=== PATIENT | female | born 1930 | race Caucasian/White ===

== ENCOUNTER 2018-02-24 17:33 | Inpatient (IN) | payer MEDICARE, MEDICAID ==
[2018-02-24] VITALS: BP 160/70
[~2018-02-24] VITALS: Ht 167.6 cm; Wt 70.3 kg
--- NOTE | 2018-02-24 17:59 | NUR ---
PT BIB PA WITH A C/O GENERALIZED WEAKNESS. PT IS [place] OF [place] IN BILATERAL EARS. PT HAS HEARING DEVICE. PT WENT TO BED #15 AND PLACED ON CONTINUOUS PULSE OX AND MONITOR.
[2018-02-24 18:05] LABS: BASOPHILS # (AUTO) 0.1 /CMM (0.0-0.2); EOSINOPHILS % (AUTO) 4.1 % (0.0-6.0); HEMATOCRIT 36 % (33-45); HEMOGLOBIN 12.1 g/dL (11.5-14.8); LYMPHOCYTES % (AUTO) 33.1 % (20.0-44.0); MEAN CORPUSCULAR HEMOGLOBIN 30 PG (26.0-33.0); MEAN CORPUSCULAR HGB CONC 34 g/dl (31.0-36.0); MEAN CORPUSCULAR VOLUME 90 fL (82-100); MONOCYTES # (AUTO) 0.5 /CMM (0.1-1.30); MONOCYTES % (AUTO) 9.3 % (2.0-12.0); NEUTROPHILS # (AUTO) 3.1 /CMM (1.8-8.9); NEUTROPHILS % (AUTO) 52.5 % (43.0-81.0); PLATELET COUNT (AUTO) 187 /CMM (150-450); WHITE BLOOD COUNT (AUTO) 5.9 K/uL (4.3-11.0)
--- NOTE | 2018-02-24 18:10 | NUR ---
CXR IN PROGRESS AT THE BEDSIDE.
[2018-02-24] MEDS ORDERED: OLAN2.5T3 PO ×2 (18:12)
[2018-02-24] MEDS ORDERED: ISOS30TA6 PO (18:12)
[2018-02-24] MEDS ORDERED: BLOO-668 IN (18:12)
[2018-02-24] MEDS ORDERED: ACET-2605 PO (18:12)
[2018-02-24] MEDS ORDERED: SENN-18 PO (18:12)
[2018-02-24] MEDS ORDERED: DABI150C PO (18:12)
[2018-02-24] MEDS ORDERED: BISA10SU8 RC (18:12)
[2018-02-24] MEDS ORDERED: DIPH30CR2 TP (18:12)
[2018-02-24] MEDS ORDERED: MAGN400O6 PO (18:12)
[2018-02-24] MEDS ORDERED: BENZ0.5T43 PO (18:12)
[2018-02-24] MEDS ORDERED: INSU100V3 SQ (18:12)
[2018-02-24] MEDS ORDERED: GLIP5TAB13 PO (18:12)
[2018-02-24] MEDS ORDERED: NA P133E RC (18:12)
[2018-02-24] MEDS ORDERED: ATOR40TA PO (18:12)
[2018-02-24] MEDS ORDERED: MAG30ORA PO (18:12)
[2018-02-24] MEDS ORDERED: ACET-868 PO (18:12)
[2018-02-24] MEDS ORDERED: GABA-532 PO (18:12)
[2018-02-24] MEDS ORDERED: PANT40TA2 PO (18:12)
[2018-02-24] MEDS ORDERED: DOCU-141 PO (18:12)
[2018-02-24 18:15] LABS: CARBON DIOXIDE 27 mmol/L (21-32); CHLORIDE 107 mmol/L (98-107); CREATININE 0.8 mg/dL (0.6-1.3); GLUCOSE 65 mg/dL (74-106); POTASSIUM 3.8 mmol/L (3.5-5.1); SODIUM SERUM 141 mmol/L (136-145); UREA NITROGEN, BLOOD 10 mg/dL (7-18)
[2018-02-24 18:18] LABS: INR 1.13 (0.85-1.15)
[2018-02-24 18:20] LABS: ALANINE AMINOTRANSFERASE 14 U/L (12-78); ALKALINE PHOSPHATASE 65 U/L (46-116); ASPARTATE AMINOTRANSFERASE 12 U/L (15-37); BILIRUBIN,DIRECT 0.1 mg/dL (0.0-0.2); BILIRUBIN,TOTAL 0.3 mg/dL (0.2-1.0); TOTAL PROTEIN, SERUM 6.7 g/dL (6.4-8.2)
[2018-02-24 18:22] LABS: TROPONIN I < 0.017 ng/mL (0.00-0.056)
[2018-02-24] MEDS ORDERED: VANCOMYCIN 1 GM in IV D5W 250 ML IV ONE (19:00)
[2018-02-24] MEDS ORDERED: CEFEPIME 1 GM in IV D5W 50 ML IV ONE (19:00)
--- NOTE | 2018-02-24 19:07 | NUR ---
PT IS AMBULATING WITH ASSISTANCE TO THE BATHROOM.
--- NOTE | 2018-02-24 19:10 | NUR ---
PT TAKEN TO THE BATHROOM VIA WC.
--- NOTE | 2018-02-24 19:16 | NUR ---
NO URINE SAMPLE OBTAINED. PT RETURNED TO ER 15 VIA WC
--- NOTE | 2018-02-24 19:26 | NUR ---
CALLED [facility] COLLABORATING SUPERVISING PHYSICIAN WAS PAGED.
--- NOTE | 2018-02-24 19:44 | NUR ---
REPORT GIVEN TO ED, ZINC CHLORIDE OPERATOR FOR SAM.
--- NOTE | 2018-02-24 20:00 | NUR ---
i&o CATH DONE BY FEMALE JACKELINE WRAY, URINE SAMPLE COLLECTED AND SENT TO LAB. NOTED CLEAR YELLOW URINE APPROXIMATELY 150ML
[2018-02-24 20:32] LABS: APPEARANCE,URINE CLEAR (CLEAR); BILIRUBIN,URINE NEGATIVE (NEGATIVE); BLOOD, URINE TRACE Ery/uL (NEGATIVE); COLOR,URINE YELLOW (YELLOW); KETONES,URINE NEGATIVE (NEGATIVE); LEUKOCYTE ESTERASE ,URINE 1+ (NEGATIVE); NITRITE, URINE NEGATIVE (NEGATIVE); PROTEIN,URINE NEGATIVE (NEGATIVE); UGLUCOSE NEGATIVE (NEGATIVE); UROBILINOGEN,URINE 0.2 EU/dL (0.2)
--- NOTE | 2018-02-24 20:45 | NUR ---
REPORT CALLED TO STAND UP COMEDIANGONSALO MALIK
[2018-02-24 20:51] LABS: RBC,URINE 0-2 /HPF (0-2)
[2018-02-24 20:52] LABS: BACTERIA,URINE Few /HPF (None Seen); SQUAMOUS EPITHELIAL CELL,UR Few /HPF (None Seen)
[2018-02-24] MEDS ORDERED: BISACODYL SUPP (10 MG) 10 MG/SUPP.RECT SUPP.RECT RC PRN (21:00)
[2018-02-24] MEDS ORDERED: MAG HYDROX/AL HYDROX/SIMETH 30 ML UDC PO PRN (21:00)
[2018-02-24] MEDS ORDERED: Z GUARD REMEDY 2 OZ OINT TP PRN (21:00)
[2018-02-24] MEDS ORDERED: HYDROCODONE/APAP 5/325MG 1 EACH TABLET PO PRN (21:00)
[2018-02-24] MEDS ORDERED: ENOXAPARIN SODIUM 40 MG/0.4 ML DISP.SYRIN SQ SCH (21:00)
[2018-02-24] MEDS ORDERED: ZOLPIDEM TARTRATE 5 MG TABLET PO PRN (21:00)
[2018-02-24] MEDS ORDERED: ACETAMINOPHEN 325 MG TABLET PO PRN (21:00)
[2018-02-24] MEDS ORDERED: MAGNESIUM HYDROXIDE 30 ML UDC PO PRN (21:00)
[2018-02-24] MEDS ORDERED: ONDANSETRON HCL/PF 4 MG/2 ML VIAL IVP PRN (21:00)
[2018-02-24 21:10] VITALS: BP 160/70
--- NOTE | 2018-02-24 21:15 | NUR ---
KATIUSKA RN NOTES RECEIVED REPORT FROM ER NURSE ED. RECEIVED PT. ON GURNEY, A/O X2 WITH EPISODES OF CONFUSION.PT IS PLACED ON YARDAGE CALLER WITH HR OF SB 50'S, ON RA WITH SPO2 OF 96%.SKIN IS INTACT WITH SOME SKIN RASH. RIGHT [id number] IV IS INTACT, PATIENT WITH 0.9%NS @75ML/HR. DENTURES(UPPER AND LOWER) AND HEARING AID ARE BEDSIDE. ALL SAFETY MEASURES ARE IMPLEMENTED, BED IN LOW, LOCKED POSITION, CALL LIGHT WITHIN REACH. WILL CONT. TO MONITOR.
[2018-02-24] MEDS ORDERED: CEFEPIME 1 GM in IV NS 0.9% 50 ML IV SCH (21:30)
[2018-02-24] MEDS: SENNOSIDES 8.6 MG TABLET PO SCH (22:39)
[2018-02-24] MEDS: ATORVASTATIN 40 MG TABLET PO SCH (22:39)
[2018-02-24] MEDS: OLANZAPINE 2.5 MG TABLET PO SCH (22:39)
[2018-02-24] MEDS: BLOOD SUGAR DIAGNOSTIC 1 EACH STRIP IN SCH (22:40)
[2018-02-24] MEDS ORDERED: BLOOD SUGAR DIAGNOSTIC 1 EACH STRIP VI SCH (23:30)
[2018-02-24] MEDS ORDERED: DEXTROSE 50%-WATER 50 ML DISP.SYRIN IV PRN (23:30)
[2018-02-25] VITALS: BP 137/70
[2018-02-25] MEDS: INSULIN REGULAR, HUMAN 100 UNIT/ML 3 ML VIAL SQ PRN ×2 (00:29→12:15)
[2018-02-25] MEDS: IV NS 0.9% 1,000 ML IV PRN ×2 (00:55→16:50)
[2018-02-25 04:00] VITALS: BP 120/57
[2018-02-25 06:21] LABS: BASOPHILS % (AUTO) 0.3 % (0.0-2.0); EOSINOPHILS % (AUTO) 2.7 % (0.0-6.0); HEMATOCRIT 33 % (33-45); HEMOGLOBIN 11.2 g/dL (11.5-14.8); LYMPHOCYTES # (AUTO) 1.1 /CMM (0.8-4.8); LYMPHOCYTES % (AUTO) 20.2 % (20.0-44.0); MEAN CORPUSCULAR HEMOGLOBIN 31 PG (26.0-33.0); MEAN CORPUSCULAR HGB CONC 34 g/dl (31.0-36.0); MEAN CORPUSCULAR VOLUME 93 fL (82-100); MONOCYTES # (AUTO) 0.4 /CMM (0.1-1.30); MONOCYTES % (AUTO) 7.5 % (2.0-12.0); NEUTROPHILS # (AUTO) 3.6 /CMM (1.8-8.9); NEUTROPHILS % (AUTO) 69.3 % (43.0-81.0); PLATELET COUNT (AUTO) 157 /CMM (150-450); RDW COEFFICIENT OF VARIATION 14.8 (11.5-15.0); RED BLOOD CELL COUNT(AUTO) 3.58 MIL/uL (4.0-5.2); WHITE BLOOD COUNT (AUTO) 5.2 K/uL (4.3-11.0)
[2018-02-25 06:25] LABS: CALCIUM, SERUM 8.4 mg/dL (8.5-10.1); CARBON DIOXIDE 26 mmol/L (21-32); CHLORIDE 110 mmol/L (98-107); CREATININE 0.8 mg/dL (0.6-1.3); GLUCOSE 77 mg/dL (74-106); MAGNESIUM 1.7 mg/dL (1.8-2.4); PHOSPHORUS 3.9 mg/dL (2.5-4.9); POTASSIUM 3.2 mmol/L (3.5-5.1); SODIUM SERUM 144 mmol/L (136-145); UREA NITROGEN, BLOOD 9 mg/dL (7-18)
[2018-02-25 06:28] LABS: CHOLESTEROL 62 mg/dL (<200); HDL CHOLESTEROL 29 mg/dL (40-60); LDL 34 mg/dL (0-99); TRIGLYCERIDES 45 mg/dL (30-150)
--- NOTE | 2018-02-25 07:15 | NUR ---
RN NOTES PT IN STABLE CONDITION. NO ACUTE DISTRESS NOTED. SAFETY MEASURES OBSERVED AT ALL TIMES. ENDORSED TO PM SHIFT NURSE FOR SAM
--- NOTE | 2018-02-25 07:15 | NUR ---
TELE/RN INITIAL NOTES RECEIVED PT IN BED, IN SEMI FOWLERS POSITION. A/O X2. NO SOB NOTED. TOLERATING RA WELL. NO C/O PAIN. WITH ONGOING IVF NS AT 75ML/HR INFUSING WELL ON R WRIST. SAFETY MEASURES OBSERVED. CALL LIGHT WITHIN REACH. WILL CONT TO MONITOR
[2018-02-25] MEDS ORDERED: POTASSIUM CHLORIDE 20 MEQ TAB.PRT.SR PO ONE (07:30)
[2018-02-25 08:00] VITALS: BP 131/56
[2018-02-25] MEDS: BLOOD SUGAR DIAGNOSTIC 1 EACH STRIP IN SCH ×4 (08:10→21:52)
[2018-02-25] MEDS: PANTOPRAZOLE 40 MG TABLET.DR PO SCH (08:11)
[2018-02-25] MEDS: Magnesium 1GM/D5W 100ML PREMIX 100 ML IV SCH ×3 (08:12→10:49)
[2018-02-25] MEDS: ISOSORBIDE MONONITRATE (30MG) 30 MG TAB.SR.24H PO SCH (08:16)
[2018-02-25] MEDS: GABAPENTIN 100 MG CAPSULE PO SCH ×2 (08:16→17:02)
[2018-02-25] MEDS: OLANZAPINE 2.5 MG TABLET PO SCH ×2 (08:17→22:07)
[2018-02-25] MEDS ORDERED: DABIGATRAN ETEXILATE MESYLATE 150 MG CAPSULE PO SCH (09:00)
[2018-02-25] MEDS ORDERED: DOCUSATE SODIUM 100 MG CAPSULE PO SCH (09:00)
[2018-02-25] MEDS ORDERED: DABIGATRAN ETEXILATE MESYLATE 75 MG CAPSULE PO SCH (10:04)
[2018-02-25] MEDS: DABIGATRAN ETEXILATE MESYLATE 75 MG CAPSULE PO SCH ×2 (10:30→17:03)
[2018-02-25 12:00] VITALS: BP 127/59
--- NOTE | 2018-02-25 12:30 | NUR ---
RN NOTES PT REFUSED LUNCH TRAY, OFFERED HER SANDWICH OR OTHER FOOD, PT STATES, "THANK YOU, I'M JUST FULL" WILL MONITOR PT
--- NOTE | 2018-02-25 12:30 | NUR ---
RN NOTES PT HAD X3 LOOSE BM, COLLECTED STOOL SAMPLE FROM 3RD BM. NOTIFIED HANK TILLMAN, AWAITING FOR ORDERS
--- NOTE | 2018-02-25 12:45 | NUR ---
RN NOTES SEEN AND EXAMINED BY HANK TILLMAN, NOTIFIED RE: LOOSE BM X3 SINCE AM SHIFT WITH ORDERS MADE STOOL CULTURE, AND D/C COLACE. ALSO MADE AWARE THAT PT REFUSED LUNCH. CALLED LABS THAT STOOL COLLECTED
[2018-02-25 16:00] VITALS: BP 140/65
--- NOTE | 2018-02-25 16:40 | NUR ---
RN NOTES BS IS 69, PT IN NO SIGNS OF HYPOGLYCEMIA, WILL RECHECK IN 1HOUR. ORANGE JUICE GIVEN
--- NOTE | 2018-02-25 17:47 | NUR ---
RN NOTES REPEAT BS DONE. CURRENT BS IS 144. HELD INSULIN COVERAGE FOR NOW AND WILL CONT TO MONITOR
[2018-02-25] MEDS ORDERED: CEFEPIME 2 GM in IV D5W 100 ML IV SCH (18:00)
--- NOTE | 2018-02-25 19:30 | NUR ---
TELE/RN NOTES: RECEIVED PT. IN BED W/ HOB ELEVATED. A/O X 2. DENIES ANY C/O CHEST PAIN OR SOB AT PRESENT. ON TELE MONITOR W/ AFIB 57. W/ RIGHT WRIST #18 PATENT AND INTACT W/ NO S/S OF INFECTION/INFILTRATION NOTED. W/ NS @ 75 CC/HR. INCONTINENT OF B/B. BEDS LOCKED AND IN LOW POSITION. CALL LIGHT W/ REACH. WILL CONTINUE TO MONITOR.
[2018-02-25 20:00] VITALS: BP 150/82
[2018-02-25] MEDS: ATORVASTATIN 40 MG TABLET PO SCH (21:53)
[2018-02-25] MEDS: SENNOSIDES 8.6 MG TABLET PO SCH (22:05)
[2018-02-26] VITALS: BP 135/71
[2018-02-26 04:00] VITALS: BP 130/57
[2018-02-26] MEDS: IV NS 0.9% 1,000 ML IV PRN (06:08)
--- NOTE | 2018-02-26 07:30 | NUR ---
NATIONAL ACCOUNT EXECUTIVE INITIAL NOTES RECEIVED PATIENT IN BED, NO SIGNS OF DISTRESS, AOX2, FORGETFUL AND HARD OF HEARING, ON TELE MONITORING AFIB SB SR 50S 60S, IN DIAPER , IV R WRIST 18G NS @ 75ML/HR, BED IN LOW AND LOCKED POSITION CALL LIGHT WITHIN REACH, BED ALARM ON, WILL CONTINUE TO MONITOR.
--- NOTE | 2018-02-26 07:32 | NUR ---
RN/TELE NOTES: NO ACUTE CHANGES NOTED DURING THIS SHIFT. REPORT GIVEN TO AM NURSE FOR SAM.
[2018-02-26] MEDS: BLOOD SUGAR DIAGNOSTIC 1 EACH STRIP IN SCH ×4 (07:46→22:54)
[2018-02-26 08:00] VITALS: BP 147/69
[2018-02-26] MEDS: OLANZAPINE 2.5 MG TABLET PO SCH ×2 (09:10→21:16)
[2018-02-26] MEDS: PANTOPRAZOLE 40 MG TABLET.DR PO SCH (09:10)
[2018-02-26] MEDS: GABAPENTIN 100 MG CAPSULE PO SCH ×2 (09:10→16:16)
[2018-02-26] MEDS: ISOSORBIDE MONONITRATE (30MG) 30 MG TAB.SR.24H PO SCH (09:10)
[2018-02-26] MEDS: DABIGATRAN ETEXILATE MESYLATE 75 MG CAPSULE PO SCH ×2 (09:13→16:16)
[2018-02-26 10:26] LABS: BASOPHILS % (AUTO) 0.7 % (0.0-2.0); EOSINOPHILS % (AUTO) 4.6 % (0.0-6.0); HEMATOCRIT 35 % (33-45); HEMOGLOBIN 11.5 g/dL (11.5-14.8); LYMPHOCYTES # (AUTO) 1.1 /CMM (0.8-4.8); LYMPHOCYTES % (AUTO) 23.2 % (20.0-44.0); MEAN CORPUSCULAR HEMOGLOBIN 31 PG (26.0-33.0); MEAN CORPUSCULAR HGB CONC 33 g/dl (31.0-36.0); MEAN CORPUSCULAR VOLUME 92 fL (82-100); MONOCYTES # (AUTO) 0.3 /CMM (0.1-1.30); MONOCYTES % (AUTO) 6.7 % (2.0-12.0); NEUTROPHILS % (AUTO) 64.8 % (43.0-81.0); PLATELET COUNT (AUTO) 176 /CMM (150-450); RED BLOOD CELL COUNT(AUTO) 3.76 MIL/uL (4.0-5.2); WHITE BLOOD COUNT (AUTO) 4.7 K/uL (4.3-11.0)
[2018-02-26 10:37] LABS: CALCIUM, SERUM 8.3 mg/dL (8.5-10.1); CARBON DIOXIDE 25 mmol/L (21-32); CHLORIDE 110 mmol/L (98-107); CREATININE 0.8 mg/dL (0.6-1.3); GLUCOSE 138 mg/dL (74-106); SODIUM SERUM 144 mmol/L (136-145); UREA NITROGEN, BLOOD 6 mg/dL (7-18)
[2018-02-26 12:00] VITALS: BP 135/67
[2018-02-26 16:00] VITALS: BP 143/73
--- NOTE | 2018-02-26 18:40 | NUR ---
ASSOCIATE ATTORNEY END NOTES PATIENT RESTING IN BED, ALL NEEDS MET, MADE COMFORTABLE, NO ACUTE CHANGES WILL ENDORSE TO RACE AND SPORTS BOOK WRITER FOR CONTINUITY OF CARE.
[2018-02-26 20:00] VITALS: BP 160/76
--- NOTE | 2018-02-26 20:00 | NUR ---
RN INITIAL NOTES RECEIVED PATIENT IN BED, NO SIGNS OF DISTRESS, AOX2, FORGETFUL AND HARD OF HEARING, ON TELE MONITORING AFIB SB SR 50S 60S, IN DIAPER , IV R WRIST 18G S/L BED IN LOW AND LOCKED POSITION CALL LIGHT WITHIN REACH, BED ALARM ON, WILL CONTINUE TO MONITOR.
[2018-02-26] MEDS: NITROFURANTOIN/NITROFURAN MAC 100 MG CAPSULE PO SCH (21:16)
[2018-02-26] MEDS: ATORVASTATIN 40 MG TABLET PO SCH (21:16)
[2018-02-26] MEDS: SENNOSIDES 8.6 MG TABLET PO SCH (21:16)
[2018-02-26] MEDS: INSULIN REGULAR, HUMAN 100 UNIT/ML 3 ML VIAL SQ PRN (21:23)
[2018-02-27] VITALS: BP 155/73
[2018-02-27 04:00] VITALS: BP 129/77
--- NOTE | 2018-02-27 06:05 | NUR ---
RN CLOSING NOTES PATIENT RESTING IN BED, ALL NEEDS MET, MADE COMFORTABLE, NO ACUTE CHANGES WILL ENDORSE TO AM SHIFT FOR CONTINUITY OF CARE.
--- NOTE | 2018-02-27 07:30 | NUR ---
BACKROOM ASSOCIATE OPENING NOTE PATIENT IS RESTING COMFORTABLY IN BED AT THIS TIME. NO FACIAL GRIMACING NOTED FOR PAIN. NO SOB OR DISTRESS NOTED. CALL LIGHT WITHIN REACH AND SAFETY MEASURES IMPLEMENTED. ABLE TO COMMUNICATE NEEDS. HEARING AID IN AT THIS TIME AND AT BEDSIDE. IV INTACT AND PATENT NO REDNESS OR SWELLING NOTED, NO IV FLUIDS RUNNING AT THIS TIME. TELE MONITOR- SR 60. BLOOD SUGAR TO BE MONITORED THROUGHOUT SHIFT. WILL CONTINUE TO MONITOR THROUGHOUT SHIFT
[2018-02-27] MEDS: BLOOD SUGAR DIAGNOSTIC 1 EACH STRIP IN SCH ×2 (07:51→11:26)
[2018-02-27] MEDS: PANTOPRAZOLE 40 MG TABLET.DR PO SCH (07:53)
--- NOTE | 2018-02-27 07:54 | NUR ---
NURSE COLLEGE NOTE BLOOD SUGAR-104 NO INSULIN NEEDED. BREAKFAST AT BEDSIDE
[2018-02-27] MEDS: NITROFURANTOIN/NITROFURAN MAC 100 MG CAPSULE PO SCH (08:03)
[2018-02-27] MEDS: GABAPENTIN 100 MG CAPSULE PO SCH (08:03)
[2018-02-27] MEDS: DABIGATRAN ETEXILATE MESYLATE 75 MG CAPSULE PO SCH (08:04)
[2018-02-27 08:06] VITALS: BP 175/88
[2018-02-27] MEDS: OLANZAPINE 2.5 MG TABLET PO SCH (08:06)
[2018-02-27] MEDS: ISOSORBIDE MONONITRATE (30MG) 30 MG TAB.SR.24H PO SCH (08:06)
--- NOTE | 2018-02-27 09:20 | NUR ---
WOUND CARE CONSULT: PT PRESENTS WITH INTACT SKIN AND ABILITY TO TURN AND REPOSITION IN BED. WILL SEE PRN.
[2018-02-27] MEDS ORDERED: NITR100C15 PO (11:42)
[2018-02-27] MEDS: INSULIN REGULAR, HUMAN 100 UNIT/ML 3 ML VIAL SQ PRN (12:05)
[2018-02-27 12:50] VITALS: BP 101/50
--- NOTE | 2018-02-27 14:20 | NUR ---
WEB CONTENT COORDINATOR NOTE PATIENT DISCHARGE TO [facility] IN STABLE CONDITION. REPORT GIVEN TO GONSALO DEUTSCH MATE CHIEF AT [facility]. ALL DUE MEDICATIONS GIVEN ORDERED. ALL NURSING CARE NEEDS ATTENDED TO NEEDED. IV REMOVED, SKIN INTACT. PATIENT REFUSED WOUND PICTURE DOCUMENTATION PRIOR TO DISCHARGE. ALL BELONGINGS ACCOUNTED FOR AT DISCHARGE AND TAKEN WITH PATIENT AND AMBULANCE. FAMILY NOTIFIED OF TRANSFER TO FACILITY. ALL DISCHARGE INSTRUCTIONS AND MEDICATION LIST GIVEN TO MATE CHIEF GONSALO DEUTSCH; ABLE TO RETURN INSTRUCTIONS BACK. LEFT VIA AMBULANCE
== END 2018-02-27 14:16 | DRG 689 ==
LOC: ER 17:36 → TELE1 20:51
PROVIDERS: ADMIT Internal Medicine; ATTEND Internal Medicine
DX: N39.0 Urinary tract infection, site not specified (principal); G92 Toxic encephalopathy; E44.0 Moderate protein-calorie malnutrition; G21.9 Secondary parkinsonism, unspecified; E86.0 Dehydration; Z79.4 Long term (current) use of insulin; Z79.899 Other long term (current) drug therapy; I25.10 Atherosclerotic heart disease of native coronary artery without angina pectoris; I10 Essential (primary) hypertension; E78.5 Hyperlipidemia, unspecified; E11.9 Type 2 diabetes mellitus without complications; E03.9 Hypothyroidism, unspecified; I70.0 Atherosclerosis of aorta; F29 Unspecified psychosis not due to a substance or known physiological condition; F01.50 Vascular dementia, unspecified severity, without behavioral disturbance, psychotic disturbance, mood disturbance, and anxiety; I48.91 Unspecified atrial fibrillation; K21.9 Gastro-esophageal reflux disease without esophagitis; M81.0 Age-related osteoporosis without current pathological fracture; Z79.01 Long term (current) use of anticoagulants
CPT/HCPCS: 36415; 71045-TC; 80048-TC; 80061-TC; 80076-TC; 81000-TC; 82962-TC; 83605-TC; 83735-TC; 83880; 84100-TC; 84484-TC; 85025-TC; 85730-TC; 87040-TC; 87045-TC; 87081-TC; 87086-TC; A4216; J0692; J1815; J3370; J3475; J7030; J7060